=== PATIENT | female | born 1955 | race African-American/Black ===

== ENCOUNTER 2016-07-30 11:42 | Emergency (ER) ==
--- NOTE | 2016-07-30 11:47 | PROVIDER DOCUMENTATION ---
HPI-Neurological Disorder - General Chief Complaint: Stroke-Like Symptoms Stated Complaint: one sided weakness Time Seen by Provider: 07/30/16 11:45 Source: patient, EMS Allergies/Adverse Reactions: Patient Allergies Allergy/AdvReac Type Severity Reaction Status Date / Time No Known Allergies Allergy Verified 07/30/16 11:48 Home Medications: Amlodipine [Norvasc] 5 mg PO DAILY 11/11/13 Clonidine [Catapres] 0.3 mg PO BID 11/11/13 Potassium Chloride [Klor-Con 8] 8 meq PO DAILY 11/11/13 Ranitidine [Zantac] 150 mg PO BID 11/11/13 Hydrocodone/Acetaminophen [Lortab 10-500 Tablet] 1 tab PO TID PRN 03/25/15 Aspirin 325 mg PO DAILY 06/02/15 Atorvastatin Calcium [Lipitor] 80 mg PO DAILY 06/02/15 Ezetimibe [Zetia] 10 mg PO DAILY 06/02/15 Albuterol Sulfate Inhaler [Ventolin Hfa] 2 puff IH Q4H PRN PRN 12/24/15 Alprazolam [Xanax] 1 mg PO DAILY 12/24/15 Budesonide/Formoterol Fumarate [Symbicort 160-4.5 Mcg Inhaler] 10.2 gm IH DAILY 12/24/15 Ipratropium/Albuterol INH [Combivent Respimat Inhaler] 2 puff IH Q4H PRN PRN Montelukast [Singulair] 10 mg PO DAILY 12/24/15 Metformin [Glucophage] 500 mg PO BID CC 03/19/16 - History of Present Illness-Neuro Nature of Presenting Problem: Reports to er by ems with cc of AMS. However upon ems arrival pt started complianing of right sided neck pain and unalbe to turn head to right. Family reports that pt started having confusion and leaning back and forth after cooking this morning. Pt has left sided facial deficits from previous stroke. EMS reports pt in nonverbal but can answer yes and no questions Severity: reports: moderate Onset/Duration: reports: 1/2 hour ago Timing: reports: still present Character of Altered Mental Status: reports: confused Any recent trauma/injury?: reports: none Similar Symptoms Previously?: No Recently seen or treated by another doctor?: No Review of Systems - Adult - REVIEW OF SYSTEMS - ADULT ROS:: limited per condition Constitutional: reports: no symptoms reported Eyes: denies: dry eyes, decreased vision, blurred vision, redness Ears, Nose, Mouth & Throat: reports: no symptoms reported Cardiovascular: denies: chest pain, irregular heart rate, orthopnea, syncope Respiratory: reports: no symptoms reported Gastrointestinal: reports: no symptoms reported Genitourinary: reports: no symptoms reported Musculoskeletal: reports: no symptoms reported Integumentary: reports: no symptoms reported Neurological: reports: see HPI. denies: numbness, paresthesia, seizure Psychiatric: reports: no symptoms reported Endocrine: reports: no symptoms reported Hematologic/Lymphatic: reports: no symptoms reported Allergic/Immunologic: reports: no symptoms reported All Other Systems: Reviewed and Negative Past History - Adult - PAST MEDICAL HISTORY-ADULT Review of Records: reports: Nursing Assessment Review Major Childhood Illnesses: reports: denies history Cardiovascular: reports: CHF, HTN, hyperlipidemia Respiratory: reports: asthma, COPD Gastrointestinal: reports: denies history Obstetrical/Gynecological: reports: denies history Genitourinary: reports: denies history Musculoskeletal: reports: denies history Neurological: reports: CVA Psychiatric: reports: anxiety Endocrine/Immune: reports: denies history Other Conditions: reports: denies history - PRIOR SURGERIES/PROCEDURES Surgical/Procedure History: reports: none, orthopedic (extremity) (2 knee replacement) - PRIOR HOSPITALIZATIONS Prior Hospitalizations: reports: none - IMMUNIZATION STATUS Childhood Immunizations: See Nurse Assessment Flu Vaccine: See Nurse Assessment - FAMILY HISTORY Family History: reviewed, not pertinent - SOCIAL HISTORY Smoking: denies Substance Use: alcohol Physical Exam- Neurological - Physical Exam-Neuro Initial Vital Signs Reviewed: Yes General Appearance: alert, mild distress. negative: appears well Eye Exam: bilateral eye: normal inspection, PERRL, EOMI HENMT: normocephalic/atraumatic, TMs normal, pharynx normal, other (left side facial drooping from previous cva per pt) Head Injury: no evidence of injury Neck: other (pt head tilted to left able to move to right just painful range of motion). negative: lymphadenopathy Respiratory: chest non-tender, lungs clear, normal breath sounds, no pleuratic chest pain, no respiratory distress, no accessory muscle use Cardiovascular: normal peripheral pulses, regular rate, rhythm, no edema, no gallop, no JVD, no murmur Abdominal Exam: normal bowel sounds, non tender, soft, no organomegaly, no pulsatile mass Extremity: normal range of motion, non-tender print room worker Exam: normal hearing, normal speech (per ems), PERRL Motor/Sensory: no motor deficit, no sensory deficit Integumentary: normal color, normal turgor, warm/dry - Glascow Coma Scale Best Eye Response: (4) open spontaneously Best Verbal Response: (5) oriented Best Motor Response: (6) obeys commands Total Glascow Score: 15 Progress - PLAN OF CARE/RESULTS Progress/Plan/Lab Results: Orders Category Date Time Status Cardiac Monitoring DIRECTED Care 07/30/16 11:45 Active Finger Stick Blood Sugar (ED) DIRECTED Care 07/30/16 11:45 Active Oxygen Therapy- ED Nursing DIRECTED Care 07/30/16 11:45 Active Saline Loc NOW Care 07/30/16 11:45 Active ABG [RESP] Routine Lab 07/30/16 11:45 Ordered ALCOHOL BLOOD Stat Lab 07/30/16 11:45 Uncollected CBC WITH ELECTRONIC DIFF [HEME] Stat Lab 07/30/16 11:45 Uncollected COMPREHENSIVE METABOLIC PANEL [CHEM] Stat Lab 07/30/16 11:45 Uncollected LACTATE, PLASMA [CHEM] Stat Lab 07/30/16 11:45 Uncollected PROTIME WITH INR [COAG] Stat Lab 07/30/16 11:45 Uncollected PTT [COAG] Stat Lab 07/30/16 11:45 Uncollected TROPONIN T Stat Lab 07/30/16 11:45 Uncollected URINE DRUG SCREEN Stat Lab 07/30/16 11:45 Uncollected Pulse Oximetry Stat Oth 07/30/16 11:45 Active EKG [EKG] Stat Ther 07/30/16 11:45 Ordered Vital Signs - 24 hr 07/30/16 11:43 Pulse Rate 91 H Respiratory 23 Rate Blood Pressure 154/122 O2 Sat by Pulse 97 Oximetry Laboratory Tests 07/30/16 07/30/16 07/30/16 12:20 12:20 12:20 WBC 10.94 H RBC 4.74 Hgb 12.7 Hct 41.0 MCV 86.5 MCH 26.8 L MCHC 31.0 L RDW Std Deviation 18.0 H Plt Count 347 MPV 9.7 Immature Gran % (Auto) 0.5 Neut % (Auto) 72.8 Lymph % (Auto) 17.6 L Desha % (Auto) 7.5 Eos % (Auto) 1.1 Baso % (Auto) 0.5 Immature Gran # (Auto) 0.05 H Neut # (Auto) 7.97 H Lymph # (Auto) 1.93 Desha # (Auto) 0.82 H Eos # (Auto) 0.12 Baso # (Auto) 0.05 PT INR APTT (Factor Assay) Specimen Type Sample Site pH pCO2 pO2 HCO3 Base Excess Oxyhemoglobin ABG O2 Sat (Calculated) ABG O2 Saturation ABG Carboxyhemoglobin ABG Methemoglobin Ant Test A-a O2 Difference Total Hemoglobin Lactate Blood Gas Modality FiO2 % Sodium 140 Potassium 4.4 Chloride 102 Carbon Dioxide 25 Anion Gap 13 BUN 16 Creatinine 1.0 H Estimated GFR/1.73 m2 56 BUN/Creatinine Ratio 16 Glucose 105 H Calculated Osmolality 281 Calcium 9.5 Total Bilirubin 0.40 AST 22 ALT 14 Alkaline Phosphatase 112 H Troponin T Total Protein 7.4 Albumin 4.0 Globulin 3.0 Albumin/Globulin Ratio 1.0 Plasma/Serum Ethyl Alc 07/30/16 07/30/16 07/30/16 12:20 12:20 12:30 WBC RBC Hgb Hct MCV MCH MCHC RDW Std Deviation Plt Count MPV Immature Gran % (Auto) Neut % (Auto) Lymph % (Auto) Desha % (Auto) Eos % (Auto) Baso % (Auto) Immature Gran # (Auto) Neut # (Auto) Lymph # (Auto) Desha # (Auto) Eos # (Auto) Baso # (Auto) PT 12.8 INR 0.93 APTT (Factor Assay) 32.0 Specimen Type ARTERIAL Sample Site L RADIAL pH 7.43 pCO2 42 pO2 72 HCO3 27.3 H Base Excess 3.2 H Oxyhemoglobin 93.2 L ABG O2 Sat (Calculated) 16.9 ABG O2 Saturation 96.7 ABG Carboxyhemoglobin 2.30 ABG Methemoglobin 1.3 Ant Test YES A-a O2 Difference 25.0 Total Hemoglobin 12.9 Lactate 1.20 Blood Gas Modality ROOM AIR FiO2 % 21.0 Sodium Potassium Chloride Carbon Dioxide Anion Gap BUN Creatinine Estimated GFR/1.73 m2 BUN/Creatinine Ratio Glucose Calculated Osmolality Calcium Total Bilirubin AST ALT Alkaline Phosphatase Troponin T < 0.010 Total Protein Albumin Globulin Albumin/Globulin Ratio Plasma/Serum Ethyl Alc Laboratory Tests 07/30/16 07/30/16 07/30/16 12:20 12:20 12:20 WBC 10.94 H RBC 4.74 Hgb 12.7 Hct 41.0 MCV 86.5 MCH 26.8 L MCHC 31.0 L RDW Std Deviation 18.0 H Plt Count 347 MPV 9.7 Immature Gran % (Auto) 0.5 Neut % (Auto) 72.8 Lymph % (Auto) 17.6 L Desha % (Auto) 7.5 Eos % (Auto) 1.1 Baso % (Auto) 0.5 Immature Gran # (Auto) 0.05 H Neut # (Auto) 7.97 H Lymph # (Auto) 1.93 Desha # (Auto) 0.82 H Eos # (Auto) 0.12 Baso # (Auto) 0.05 PT INR APTT (Factor Assay) Specimen Type Sample Site pH pCO2 pO2 HCO3 Base Excess Oxyhemoglobin ABG O2 Sat (Calculated) ABG O2 Saturation ABG Carboxyhemoglobin ABG Methemoglobin Ant Test A-a O2 Difference Total Hemoglobin Lactate Blood Gas Modality FiO2 % Sodium 140 Potassium 4.4 Chloride 102 Carbon Dioxide 25 Anion Gap 13 BUN 16 Creatinine 1.0 H Estimated GFR/1.73 m2 56 BUN/Creatinine Ratio 16 Glucose 105 H Calculated Osmolality 281 Calcium 9.5 Total Bilirubin 0.40 AST 22 ALT 14 Alkaline Phosphatase 112 H Troponin T Total Protein 7.4 Albumin 4.0 Globulin 3.0 Albumin/Globulin Ratio 1.0 Plasma Lactate Plasma/Serum Ethyl Alc 07/30/16 07/30/16 07/30/16 12:20 12:20 12:30 WBC RBC Hgb Hct MCV MCH MCHC RDW Std Deviation Plt Count MPV Immature Gran % (Auto) Neut % (Auto) Lymph % (Auto) Desha % (Auto) Eos % (Auto) Baso % (Auto) Immature Gran # (Auto) Neut # (Auto) Lymph # (Auto) Desha # (Auto) Eos # (Auto) Baso # (Auto) PT 12.8 INR 0.93 APTT (Factor Assay) 32.0 Specimen Type ARTERIAL Sample Site L RADIAL pH 7.43 pCO2 42 pO2 72 HCO3 27.3 H Base Excess 3.2 H Oxyhemoglobin 93.2 L ABG O2 Sat (Calculated) 16.9 ABG O2 Saturation 96.7 ABG Carboxyhemoglobin 2.30 ABG Methemoglobin 1.3 Ant Test YES A-a O2 Difference 25.0 Total Hemoglobin 12.9 Lactate 1.20 Blood Gas Modality ROOM AIR FiO2 % 21.0 Sodium Potassium Chloride Carbon Dioxide Anion Gap BUN Creatinine Estimated GFR/1.73 m2 BUN/Creatinine Ratio Glucose Calculated Osmolality Calcium Total Bilirubin AST ALT Alkaline Phosphatase Troponin T < 0.010 Total Protein Albumin Globulin Albumin/Globulin Ratio Plasma Lactate Plasma/Serum Ethyl Alc 07/30/16 12:45 WBC RBC Hgb Hct MCV MCH MCHC RDW Std Deviation Plt Count MPV Immature Gran % (Auto) Neut % (Auto) Lymph % (Auto) Desha % (Auto) Eos % (Auto) Baso % (Auto) Immature Gran # (Auto) Neut # (Auto) Lymph # (Auto) Desha # (Auto) Eos # (Auto) Baso # (Auto) PT INR APTT (Factor Assay) Specimen Type Sample Site pH pCO2 pO2 HCO3 Base Excess Oxyhemoglobin ABG O2 Sat (Calculated) ABG O2 Saturation ABG Carboxyhemoglobin ABG Methemoglobin Ant Test A-a O2 Difference Total Hemoglobin Lactate Blood Gas Modality FiO2 % Sodium Potassium Chloride Carbon Dioxide Anion Gap BUN Creatinine Estimated GFR/1.73 m2 BUN/Creatinine Ratio Glucose Calculated Osmolality Calcium Total Bilirubin AST ALT Alkaline Phosphatase Troponin T Total Protein Albumin Globulin Albumin/Globulin Ratio Plasma Lactate 1.4 Plasma/Serum Ethyl Alc Laboratory Tests 07/30/16 07/30/16 07/30/16 12:20 12:20 12:20 WBC 10.94 H RBC 4.74 Hgb 12.7 Hct 41.0 MCV 86.5 MCH 26.8 L MCHC 31.0 L RDW Std Deviation 18.0 H Plt Count 347 MPV 9.7 Immature Gran % (Auto) 0.5 Neut % (Auto) 72.8 Lymph % (Auto) 17.6 L Desha % (Auto) 7.5 Eos % (Auto) 1.1 Baso % (Auto) 0.5 Immature Gran # (Auto) 0.05 H Neut # (Auto) 7.97 H Lymph # (Auto) 1.93 Desha # (Auto) 0.82 H Eos # (Auto) 0.12 Baso # (Auto) 0.05 PT INR APTT (Factor Assay) Specimen Type Sample Site pH pCO2 pO2 HCO3 Base Excess Oxyhemoglobin ABG O2 Sat (Calculated) ABG O2 Saturation ABG Carboxyhemoglobin ABG Methemoglobin Ant Test A-a O2 Difference Total Hemoglobin Lactate Blood Gas Modality FiO2 % Sodium 140 Potassium 4.4 Chloride 102 Carbon Dioxide 25 Anion Gap 13 BUN 16 Creatinine 1.0 H Estimated GFR/1.73 m2 56 BUN/Creatinine Ratio 16 Glucose 105 H Calculated Osmolality 281 Calcium 9.5 Total Bilirubin 0.40 AST 22 ALT 14 Alkaline Phosphatase 112 H Troponin T Total Protein 7.4 Albumin 4.0 Globulin 3.0 Albumin/Globulin Ratio 1.0 Plasma Lactate Urine Opiates Screen Ur Oxycodone Screen Urine Methadone Screen Ur Barbituates Screen Ur Tricyclics Screen Ur Phencyclidine Scrn Ur Amphetamines Screen U Methamphetamines Scrn Urine MDMA Screen U Benzodiazepines Scrn Urine Cocaine Screen U Cannabinoids Screen Plasma/Serum Ethyl Alc 07/30/16 07/30/16 07/30/16 12:20 12:20 12:30 WBC RBC Hgb Hct MCV MCH MCHC RDW Std Deviation Plt Count MPV Immature Gran % (Auto) Neut % (Auto) Lymph % (Auto) Desha % (Auto) Eos % (Auto) Baso % (Auto) Immature Gran # (Auto) Neut # (Auto) Lymph # (Auto) Desha # (Auto) Eos # (Auto) Baso # (Auto) PT 12.8 INR 0.93 APTT (Factor Assay) 32.0 Specimen Type ARTERIAL Sample Site L RADIAL pH 7.43 pCO2 42 pO2 72 HCO3 27.3 H Base Excess 3.2 H Oxyhemoglobin 93.2 L ABG O2 Sat (Calculated) 16.9 ABG O2 Saturation 96.7 ABG Carboxyhemoglobin 2.30 ABG Methemoglobin 1.3 Ant Test YES A-a O2 Difference 25.0 Total Hemoglobin 12.9 Lactate 1.20 Blood Gas Modality ROOM AIR FiO2 % 21.0 Sodium Potassium Chloride Carbon Dioxide Anion Gap BUN Creatinine Estimated GFR/1.73 m2 BUN/Creatinine Ratio Glucose Calculated Osmolality Calcium Total Bilirubin AST ALT Alkaline Phosphatase Troponin T < 0.010 Total Protein Albumin Globulin Albumin/Globulin Ratio Plasma Lactate Urine Opiates Screen Ur Oxycodone Screen Urine Methadone Screen Ur Barbituates Screen Ur Tricyclics Screen Ur Phencyclidine Scrn Ur Amphetamines Screen U Methamphetamines Scrn Urine MDMA Screen U Benzodiazepines Scrn Urine Cocaine Screen U Cannabinoids Screen Plasma/Serum Ethyl Alc 01/04/17 01/04/17 12:45 13:50 WBC RBC Hgb Hct MCV MCH MCHC RDW Std Deviation Plt Count MPV Immature Gran % (Auto) Neut % (Auto) Lymph % (Auto) Desha % (Auto) Eos % (Auto) Baso % (Auto) Immature Gran # (Auto) Neut # (Auto) Lymph # (Auto) Desha # (Auto) Eos # (Auto) Baso # (Auto) PT INR APTT (Factor Assay) Specimen Type Sample Site pH pCO2 pO2 HCO3 Base Excess Oxyhemoglobin ABG O2 Sat (Calculated) ABG O2 Saturation ABG Carboxyhemoglobin ABG Methemoglobin Ant Test A-a O2 Difference Total Hemoglobin Lactate Blood Gas Modality FiO2 % Sodium Potassium Chloride Carbon Dioxide Anion Gap BUN Creatinine Estimated GFR/1.73 m2 BUN/Creatinine Ratio Glucose Calculated Osmolality Calcium Total Bilirubin AST ALT Alkaline Phosphatase Troponin T Total Protein Albumin Globulin Albumin/Globulin Ratio Plasma Lactate 1.4 Urine Opiates Screen NONE DETECTED Ur Oxycodone Screen NONE DETECTED Urine Methadone Screen NONE DETECTED Ur Barbituates Screen NONE DETECTED Ur Tricyclics Screen NONE DETECTED Ur Phencyclidine Scrn NONE DETECTED Ur Amphetamines Screen NONE DETECTED U Methamphetamines Scrn NONE DETECTED Urine MDMA Screen NONE DETECTED U Benzodiazepines Scrn NONE DETECTED Urine Cocaine Screen NONE DETECTED U Cannabinoids Screen NONE DETECTED Plasma/Serum Ethyl Alc BP on discharge 147/115 - REASSESSMENT Reassessment #1 Time Reassessed: 13:01 (Pt is in no distress at this time full able to move neck back and forth.) Reassessment #2 Time Reassessed: 13:32 (MD reassesed family at bedside reports pt woke up this am at 0900 was sitting in chair was lightheaded reports immediately got up went to kitchen started making breakfast and then started losing balanc and then reports vision went to black again. Reports checked Bs 174. Hadnt took BP in one day Started having stiff face family called EMS. Reports last episode 5 months ago. Pt is in no distress and is able to move neck fully and reports no pain.) - EKG 1 Time of EKG reading by physician:: 11:42 EKG Read and Signed by:: Jose Chávez Jr EKG Interpretation (*Must complete 3 of following elements*): Abnormal Rate: 93 Rhythm: nsr Hamill: normal QRS: normal ST Wave: non-specific ST changes - CT/MRI 1 CT Study: Head Impression: Normal (no acute disease; unchanged; ) Departure - Departure Time of Disposition Order: 13:34 DIAGNOSIS: Muscle spasms of neck, Medical non-compliance, Uncontrolled hypertension Disposition: HOME 01 Certified Medical Emergency: Emergent Condition: Stable Additional Instructions: Take medications as instructed ED Follow Up Instructions: You have been treated by a care provider in the Emergency Department. These instructions are being provided to you so you can have an understanding of how to care for yourself upon discharge. Upon discharge from the Emergency Department, you are responsible for making arrangements for follow-up care by a physician of your choice. Take all prescribed medications as directed. Return to the Emergency Department immediately for any new or worsening symptoms. You may call the Physician Referral phone number at [phone] to obtain a list of Physicians who are taking new patients. Referrals: None,PCP [Primary Care Provider] - Attestation - Scribe Verification/Attestation Scribe:: Iliana Hennessy Acting as Scribe for:: Jose Chávez Jr Scribe documention review:: This chart was documented by a scribe and accurately reflects the service the provider performed and the decisions made by the provider.
[2016-07-30 11:48] VITALS: BP 154/122
--- NOTE | 2016-07-30 11:56 | EKG Report ---
Test Performed on : 07/30/2016 11:42:36 AM Test Reason : AMS Blood Pressure : / mmHG Vent. Rate : 093 BPM Atrial Rate : 093 BPM P-R Int : 192 ms QRS Dur : 096 ms QT Int : 378 ms P-R-T Axes : 082 040 083 degrees QTc Int : 469 ms Normal sinus rhythm. Nonspecific T wave abnormality Abnormal ECG When compared with ECG of 20-MAR-2016 03:49, Nonspecific T wave abnormality, improved in Lateral leads Unconfirmed Result
[2016-07-30 12:36] LABS: MANUAL DIFF NEEDED? NO
[2016-07-30 12:38] LABS: BASO% 0.5 % (0.0-0.8); EOS# 0.12 X1000 (0.0-0.7); EOS% 1.1 % (0.0-10.0); HEMOGLOBIN 12.7 g/dL (12.0-16.0); IMM GRAN# 0.05 X1000 (0.0-0.04); IMM GRAN% 0.5 % (0.0-0.5); LYMPH# 1.93 X1000 (1.2-3.4); LYMPH% 17.6 % (20.5-51.1); MCH 26.8 PG (27-31); MCV 86.5 FL (81-99); MONO# 0.82 X1000 (0.11-0.59); MONO% 7.5 % (1.7-9.3); MPV 9.7 FL (7.4-10.4); NEUT% 72.8 % (42.2-75.2); PLT 347 X1000 (130-400); RBC 4.74 XMIL (4.2-5.4)
--- NOTE | 2016-07-30 12:38 | Diag Imaging Result Document ---
PROCEDURE NAME: HEAD W/O CONTRAST - 07/30/[address]: COMPARISON: 03/19/2016. FINDINGS: There are stable, large, old bilateral cerebral infarctions. No intracranial mass or hemorrhage. The skull is intact. The sinuses, mastoids, and middle ears are clear. IMPRESSION: No change from prior.
[2016-07-30 12:42] LABS: BE 3.2 mmoll (-3.0-3.0); BLOOD TYPE ARTERIAL; DRAW SITE L RADIAL; METHB 1.3 % (0.0-1.5); O2(CT) 16.9 mL/dL (15.0-23.0); PCO2(98.6) 42 mmHg (35-45); PO2(98.6) 72 mmHg (60-100); SAMPLE BLOOD; SAO2 96.7 % (95.0-100.0); THB 12.9 g/dL (11.5-17.4); pH(98.6) 7.43 (7.35-7.45)
[2016-07-30 12:45] LABS: INR 0.93 (0.86-1.15); PROTIME 12.8 Seconds (12.1-15.5)
[2016-07-30 12:51] LABS: CALCIUM 9.5 mg/dL (8.8-10.2); POTASSIUM 4.4 mmol/L (3.5-5.1); TOTAL BILIRUBIN 0.4 mg/dL (0.20-1.00); TOTAL PROTEIN 7.4 g/dL (6.3-8.3)
[2016-07-30 12:54] LABS: ALLEN TEST YES; MODALITY ROOM AIR
[2016-07-30 14:18] LABS: UR AMPHETAMINES QUAL NONE DETECTED (NONE DETECT); UR BARBITUATES QUAL NONE DETECTED (NONE DETECT); UR BENZODIAZEPIN QUAL NONE DETECTED (NONE DETECT); UR COCAINE QUAL NONE DETECTED (NONE DETECT); UR MDMA QUAL NONE DETECTED (NONE DETECT); UR METHADONE QUAL NONE DETECTED (NONE DETECT); UR METHAMPHETAMINE QUAL NONE DETECTED (NONE DETECT); UR OPIATES QUAL NONE DETECTED (NONE DETECT); UR OXYCODONE QUAL NONE DETECTED (NONE DETECT); UR PCP QUAL NONE DETECTED (NONE DETECT); UR TCA QUAL NONE DETECTED (NONE DETECT)
[2016-07-30 14:19] LABS: UR CANNABINOIDS QUAL NONE DETECTED (NONE DETECT)
[2016-07-30] MEDS ORDERED: LASIX IV ONE (14:33)
[2016-07-30] MEDS ORDERED: CATAPRES PO ONE (14:33)
[2016-07-30] MEDS ORDERED: PRINIVIL PO ONE (14:33)
[2016-07-30] MEDS ORDERED: CATAPRES ONE ×2 (14:50→14:51)
== END 2016-07-30 15:30 | disposition home or self-care (01) ==
LOC: P.ED 11:42
DX: M62.838 Other muscle spasm (principal); I10 Essential (primary) hypertension; R94.31 Abnormal electrocardiogram [ECG] [EKG]; R41.82 Altered mental status, unspecified; M54.2 Cervicalgia; R41.0 Disorientation, unspecified; M62.81 Muscle weakness (generalized); R42 Dizziness and giddiness; H53.8 Other visual disturbances; E78.5 Hyperlipidemia, unspecified; J45.909 Unspecified asthma, uncomplicated; J44.9 Chronic obstructive pulmonary disease, unspecified; I69.392 Facial weakness following cerebral infarction; F41.9 Anxiety disorder, unspecified; Z79.82 Long term (current) use of aspirin; Z79.899 Other long term (current) drug therapy; Z91.19 Patient's noncompliance with other medical treatment and regimen; Z96.659 Presence of unspecified artificial knee joint
CPT/HCPCS: 70450; 80053; 82805; 83605; 84484; 85025; 85610; 85730; 93005; 96374; G0477; G0480; J1940

== ENCOUNTER 2016-11-01 19:01 | Inpatient (IN) ==
[2016-11-01 19:31] LABS: MANUAL DIFF NEEDED? NO
[2016-11-01 19:40] LABS: BASO% 0.4 % (0.0-0.8); EOS# 0.18 X1000 (0.0-0.7); EOS% 1.6 % (0.0-10.0); HEMATOCRIT 40.8 % (37.0-47.0); HEMOGLOBIN 12.6 g/dL (12.0-16.0); IMM GRAN# 0.04 X1000 (0.0-0.04); IMM GRAN% 0.4 % (0.0-0.5); LYMPH# 3.17 X1000 (1.2-3.4); MCH 26.1 PG (27-31); MCHC 30.9 g/dL (33-37); MCV 84.5 FL (81-99); MONO% 8.8 % (1.7-9.3); MPV 10.1 FL (7.4-10.4); NEUT% 60.8 % (42.2-75.2); PLT 335 X1000 (130-400); RBC 4.83 XMIL (4.2-5.4)
[2016-11-01 19:53] LABS: INR 0.95 (0.86-1.15)
[2016-11-01 19:54] LABS: PTT PL 30.9 Seconds (22.6-43.9)
[2016-11-01 20:20] LABS: AGAP 17; ALBUMIN 3.8 g/dL (3.5-5.0); ALKALINE PHOSPHATASE 97 U/L (32-104); BUN 41 mg/dL (8-22); CALCIUM 9.4 mg/dL (8.8-10.2); CHLORIDE 101 mmol/L (98-107); CK PROFILE 122 U/L (24-173); COSMO 287; GOT 14 U/L (10-30); GPT 10 U/L (10-36); MAGNESIUM 2.3 mg/dL (1.5-2.7); POTASSIUM 2.9 mmol/L (3.5-5.1); SODIUM 138 mmol/L (136-145); TCO2 20 mmol/L (25-35); TOTAL BILIRUBIN < 0.15 mg/dL (0.20-1.00); TOTAL PROTEIN 7.8 g/dL (6.3-8.3)
--- NOTE | 2016-11-01 20:38 | Diag Imaging Result Document ---
PROCEDURE NAME: HEAD W/O CONTRAST - 11/01/2016 CT OF THE HEAD: A CT dose reduction protocol was used. COMPARISON: 07/30/2016. FINDINGS: There are stable old bilateral cerebral infarctions. No intracranial mass or hemorrhage. The skull is intact. The sinuses are clear. IMPRESSION: No acute disease or change from prior. MTDD
--- NOTE | 2016-11-01 21:28 | EKG Report ---
Test Performed on : 11/01/2016 7:51:56 PM Test Reason : CHEST PAIN Blood Pressure : / mmHG Vent. Rate : 072 BPM Atrial Rate : 072 BPM P-R Int : 224 ms QRS Dur : 104 ms QT Int : 460 ms P-R-T Axes : 071 012 081 degrees QTc Int : 503 ms Sinus rhythm. with 1st degree AV block. with occasional premature ventricular complexes. Nonspecific T wave abnormality Abnormal ECG When compared with ECG of 30-JUL-2016 11:42, premature ventricular complexes. are now present OH interval has increased Unconfirmed Result
[2016-11-01] MEDS ORDERED: POTASSIUM CHLORIDE 40 MEQ/SWI 40 MEQ/100 ML IVPB IV ONE (22:18)
--- NOTE | 2016-11-01 22:31 | Diag Imaging Result Document ---
PROCEDURE NAME: CT THORAX W/O CONTRAST - 11/01/2016 CT CHEST 11/01/2016: A CT dose reduction protocol was used. COMPARISON: Previous chest x-rays. FINDINGS: There is no adenopathy. Heart and great vessels are normal. 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 No suspicious abnormalities of the upper abdomen. The lungs are clear of infiltrate. Significant degenerative changes throughout the thoracic spine. No acute bony lesions. IMPRESSION: No acute disease. [facility]
[2016-11-01] MEDS: MORPHINE IV PRN (22:33)
--- NOTE | 2016-11-02 01:20 | Diag Imaging Result Document ---
PROCEDURE NAME: CHEST-2 VIEWS - 11/01/2016 CHEST X-RAY 2 VIEWS: COMPARISON: 03/19/2016. FINDINGS: The lungs are normally expanded and clear. Heart size and mediastinal contours are normal. No pneumothorax or pleural effusion. IMPRESSION: Negative exam.
[2016-11-02] MEDS: MORPHINE IV PRN ×3 (02:54→23:55)
[2016-11-02 10:08] LABS: ALBUMIN 3.4 g/dL (3.5-5.0); ALKALINE PHOSPHATASE 84 U/L (32-104); DIRECT BILIRUBIN < 0.20 mg/dL (0.00-0.20); GOT 14 U/L (10-30); GPT 8 U/L (10-36); MAGNESIUM 2.2 mg/dL (1.5-2.7); TOTAL PROTEIN 6.7 g/dL (6.3-8.3)
[2016-11-02 13:04] LABS: HEMATOCRIT 39.1 % (37.0-47.0); MCH 26.2 PG (27-31); MCHC 30.7 g/dL (33-37); MCV 85.4 FL (81-99); MPV 9.9 FL (7.4-10.4); RBC 4.58 XMIL (4.2-5.4)
--- NOTE | 2016-11-02 16:53 | HISTORY AND PHYSICAL ---
CHIEF COMPLAINT: Stroke, facial drooping, and left-sided weakness. HISTORY OF PRESENT ILLNESS: This is a 60-year-old female with a history of prior cerebrovascular accidents, who presented to the emergency room with family members, who stated that the patient had complained of a headache for 2 days, but upon checking on the sister prior to coming the emergency room she was noted to have a new facial droop with increased left-sided weakness. The patient is nonverbal, so the history is taken from family members and chart. There is no family present at this time, so history is taken from the chart and the nursing staff. Evidently, the patient has "been leaning when she walks" for quite some time now. Upon arrival to the emergency room, she was awake. Of course, speech was garbled. She did not consistently follow commands. CT of the head revealed no acute disease or change from prior. Her status remained stable in the emergency room. PAST MEDICAL HISTORY: Cerebrovascular accident x5, chronic obstructive pulmonary disease, diabetes mellitus, hypertension, and seizures. PAST SURGICAL HISTORY: Hysterectomy, hernia repair, total knee, left shoulder surgery. SOCIAL HISTORY: She denies tobacco or illicit drug use. She has an occasional social glass of wine. ALLERGIES: No known drug allergies. HOME MEDICATIONS: A list will be obtained. REVIEW OF SYSTEMS: Unable to obtain from the patient. PHYSICAL EXAMINATION: GENERAL: This is a 60-year-old female who is lying in the bed in no distress. VITAL SIGNS: Blood pressure is 127/65, heart rate of 82, respirations are 18, temperature is 98.1 degrees oral with oxygen saturations of 98-100% on 2 L nasal cannula. HEENT: Head is normocephalic, atraumatic. Pupils equal, round, react to light. Extraocular movements intact. Sclerae anicteric. Mucous membranes are moist. NECK: Supple. Trachea midline. CARDIOVASCULAR: Regular rate and rhythm. S1 and S2 appreciated. PULMONARY: Breath sounds are clear with no increased work of breathing noted. GASTROINTESTINAL: Soft, nontender, nondistended with bowel sounds in all 4 quadrants. NEUROLOGIC: She is awake. She appears alert. She is nonverbal. She does nod her head yes or no to questions, although we cannot be sure that she does understand. When asked to check arm strength and director medical writing she will raise her arm up in the air but does not director medical writing or push or pull. EXTREMITIES: No clubbing, cyanosis, or edema. Pulses are palpable x4. Calves are nontender. DIAGNOSTICS: WBC is 11.34 with hemoglobin 12.6, hematocrit 40.8, platelets of 335,000. D-dimer is 1.64. Sodium is 138, potassium 2.9, BUN 41, creatinine 1.7, with a glucose of 119. Troponin is negative on multiple occasions. CT of the head revealed no acute processes. ASSESSMENT AND PLAN: 1. Transient ischemic attack versus cerebrovascular accident. 2. Left side weakness. 3. Hypokalemia. 4. Diabetes mellitus. 5. Chronic obstructive pulmonary disease. 6. Hypertension. 7. Chronic kidney disease. She is admitted to the hospital. We will continue telemetry with neuro checks q.4 hours. We will obtain a carotid ultrasound. MRI in the morning. We will continue to trend labs and replete electrolytes as appropriate. We will continue to trend troponin's. Pattern blood glucose with sliding scale insulin. We will identify her home medications and continue as appropriate. Further treatments pending hospital course. Dictated by ESAU Brown for Stepan Shea MD cc: ESAU Brown MD
[2016-11-02] MEDS ORDERED: LOVENOX SUBQ ONE (23:01)
[2016-11-02] MEDS: MONISTAT 3 VAG SCH (23:56)
[2016-11-03] MEDS: LIPITOR PO SCH ×2 (00:04→20:25)
[2016-11-03 07:03] LABS: HEMATOCRIT 41.5 % (37.0-47.0); HEMOGLOBIN 12.6 g/dL (12.0-16.0); MCH 26.2 PG (27-31); MCHC 30.4 g/dL (33-37); MCV 86.3 FL (81-99); RBC 4.81 XMIL (4.2-5.4)
--- NOTE | 2016-11-03 07:09 | Extremity Venous Study ---
PROCEDURE NAME: Carotid Ultrasound - 11/02/2016 BILATERAL CAROTID ARTERY DOPPLER ULTRASOUND: COMPARISON: None. FINDINGS: The carotid artery systems are patent bilaterally. No evidence of stenosis. No elevated velocities. Maximum velocity on the right is 59 cm/sec and on the left is 69 cm/sec. The vertebral arteries are patent with forward flow. IMPRESSION: No significant stenosis. Estimated stenosis is 0%.
[2016-11-03 07:39] LABS: ALBUMIN 3.6 g/dL (3.5-5.0); CALCIUM 9.6 mg/dL (8.8-10.2); MAGNESIUM 2.3 mg/dL (1.5-2.7); POTASSIUM 3.4 mmol/L (3.5-5.1); TOTAL BILIRUBIN 0.2 mg/dL (0.20-1.00); TOTAL PROTEIN 7.5 g/dL (6.3-8.3)
[2016-11-03] MEDS ORDERED: KLOR-CON PO SCH (09:00)
[2016-11-03] MEDS: ASPIRIN PO SCH (09:08)
[2016-11-03] MEDS: KLOR-CON PO SCH (09:08)
[2016-11-03] MEDS: ZETIA PO SCH (09:08)
[2016-11-03] MEDS: SINGULAIR PO SCH (09:08)
[2016-11-03] MEDS: PEPCID PO SCH ×2 (09:08→20:25)
[2016-11-03] MEDS: CATAPRES PO SCH ×2 (09:45→16:48)
[2016-11-03] MEDS: MONISTAT 3 VAG SCH (20:25)
[2016-11-03] MEDS: KLONOPIN PO SCH (23:16)
[2016-11-04] MEDS: CATAPRES PO SCH ×3 (00:04→17:26)
--- NOTE | 2016-11-04 01:00 | PROGRESS NOTE ---
DATE: 11/03/2016 SUBJECTIVE: The patient is nonverbal secondary to previous stroke. She appears to be acknowledging that her left upper extremity weakness is a little better. OBJECTIVE: vital signs: Temp 989, pulse 77, respiratory rate 18, BP 110/66. General: Patient is awake, alert. She appears in no respiratory distress. She shakes her head yes or no in response to questions appropriately. HEENT: Normocephalic. Neck: Supple. Cardiovascular: Regular rate. Chest: Relatively clear. Extremities: She is noted to have decreased, but a little bit stronger movement of her left upper extremity, compared to yesterday's exam. ASSESSMENT: 1. CVA. 2. Left-sided weakness, secondary to an acute change in her CVA symptoms. 3. Chronic history of stroke, leaving her with dysphagia and some left-sided weakness. 4. Hypokalemia. 5. Diabetes. 6. COPD. 7. Hypertension. 8. Leukocytosis, resolved. 9. Elevated D-dimer. 10. Acute on chronic renal failure, slowly improving. 11. Hypokalemia, resolved. PLAN: Patient's D-dimer was elevated. Her creatinine continues to improve. Hopefully, it will be good enough in the morning to do a CT of her chest to rule out a pulmonary embolus. If not, she will need to be transferred across town for a V/Q scan. We will get physical therapy involved. We will attempt to contact [employer]. cc: Stepan Shea MD
[2016-11-04 06:35] LABS: MANUAL DIFF NEEDED? NO
[2016-11-04 06:49] LABS: BASO% 0.5 % (0.0-0.8); EOS# 0.29 X1000 (0.0-0.7); EOS% 3.7 % (0.0-10.0); HEMATOCRIT 37.6 % (37.0-47.0); HEMOGLOBIN 11.1 g/dL (12.0-16.0); IMM GRAN# 0.02 X1000 (0.0-0.04); IMM GRAN% 0.3 % (0.0-0.5); LYMPH# 2.07 X1000 (1.2-3.4); LYMPH% 26.7 % (20.5-51.1); MCH 25.5 PG (27-31); MCHC 29.5 g/dL (33-37); MCV 86.4 FL (81-99); MONO# 0.94 X1000 (0.11-0.59); MONO% 12.1 % (1.7-9.3); MPV 9.9 FL (7.4-10.4); NEUT% 56.7 % (42.2-75.2); PLT 306 X1000 (130-400); RBC 4.35 XMIL (4.2-5.4)
[2016-11-04 07:38] LABS: ALBUMIN 3.1 g/dL (3.5-5.0); CALCIUM 8.9 mg/dL (8.8-10.2); MAGNESIUM 2.3 mg/dL (1.5-2.7); POTASSIUM 3.5 mmol/L (3.5-5.1); TOTAL BILIRUBIN 0.3 mg/dL (0.20-1.00); TOTAL PROTEIN 6.3 g/dL (6.3-8.3)
[2016-11-04] MEDS: ASPIRIN PO SCH (09:55)
[2016-11-04] MEDS: SINGULAIR PO SCH (09:55)
[2016-11-04] MEDS: KLOR-CON PO SCH (09:55)
[2016-11-04] MEDS: PEPCID PO SCH (09:55)
[2016-11-04] MEDS: KLONOPIN PO SCH (09:56)
[2016-11-04] MEDS: ZETIA PO SCH (09:56)
--- NOTE | 2016-11-04 14:37 | Extremity Venous Study ---
PROCEDURE NAME: Venous U/S Bilateral Legs - 11/03/2016 BILATERAL LOWER EXTREMITY VENOUS FLOW EVALUATION: INDICATION: Calf pain. FINDINGS: The patient is morbidly obese. The deep veins of the lower extremities demonstrate appropriate compressibility and augmentation. No intraluminal thrombus is visualized. There is no evidence for DVT. No superficial thrombosis is appreciated. IMPRESSION: No evidence for deep venous thrombosis of the bilateral lower extremities.
--- NOTE | 2016-11-04 14:54 | Diag Imaging Result Document ---
PROCEDURE NAME: LUNG SCAN / VQ - 11/04/2016 PULMONARY VENTILATION PERFUSION SCAN: COMPARISON: Chest x-ray from earlier 11/04/2016. FINDINGS: 38 millicurie of DTPA was used for inhalation. 5.8 mCi of MAA was used for injection. There is a moderate perfusion defect at the left upper lobe apical posterior segment. No other perfusion defects visible. IMPRESSION: Possible pulmonary perfusion defect at the left upper lobe. This is of intermediate probability for pulmonary embolism. [facility]
[2016-11-04 15:14] VITALS: BP 90/49
--- NOTE | 2016-11-04 16:32 | DISCHARGE SUMMARY ---
ADMISSION DATE: 11/01/2016 DISCHARGE DATE: 11/04/2016 ADMISSION DIAGNOSES: 1. Transient ischemic attack versus cerebrovascular accident. 2. Left-sided weakness. 3. Hypokalemia. 4. Diabetes. 5. Chronic obstructive pulmonary disease. 6. Hypertension. 7. Chronic kidney disease. DISCHARGE DIAGNOSES: 1. Cerebrovascular accident. 2. Left-sided weakness secondary to an acute change in her cerebrovascular accident symptoms. 3. Chronic history of cerebrovascular accident leaving her with dysphagia and some left-sided weakness. 4. Hypokalemia, resolved. 5. Diabetes. 6. Chronic obstructive pulmonary disease. 7. Hypertension. SUMMARY OF FINDINGS: This is a 60-year-old female who presents to the emergency room stating she has had a headache for 2 days. She was noted to have a new facial droop with increased left-sided weakness. The patient is nonverbal, so the history was taken from family members and her chart. She had been "leaning" when she walks for some time. On arrival to the emergency room, she was awake. Speech was garbled. She could not consistently follow commands. CT of the head revealed no acute disease or change from prior. A chest CT showed no acute disease. Carotid Doppler showed no significant stenosis, estimated stenosis is 0%. Extremity venous study showed no evidence for DVT of her bilateral lower extremities. A V /Q scan this a.m. showed a possible pulmonary perfusion defect at the left upper lobe consistent for an intermediate probability for a PE. She has been followed by physical therapy and has tolerated well, and it is felt that she can now safely be discharged to rehab. DISCHARGE MEDICATIONS: Aspirin 325 mg p.o. daily, atorvastatin 80 mg p.o. daily , clonazepam 1 mg p.o. b.i.d., clonidine 0.3 mg p.o. t.i.d., ezetimibe 10 mg p.o. daily, montelukast sodium 10 mg p.o. daily, potassium 8 mEq p.o. daily, Zantac 150 mg p.o. b.i.d. FOLLOW UP: The patient will follow up with her primary care physician at discharge. It was discussed with the attending on the V/Q scan and the intermittent probability of a PE, and it is not felt that she does have one at this time because shows no signs and symptoms of respiratory distress. TIME SPENT: The time spent was 35 minutes. Dictated by ESAU Armendariz for Johnathon Aguilar MD cc: ESAU Armendariz MD Moses Awoniyi, MD MTDD
--- NOTE | 2016-11-05 07:34 | Diag Imaging Result Document ---
PROCEDURE NAME: CHEST-2 VIEWS - 11/04/2016 TWO VIEWS THE CHEST: FINDINGS: There is atelectasis in the lingula which was present on 11/01/2016. Otherwise, there has been no apparent change. IMPRESSION: Lingular atelectasis.
--- NOTE | 2016-11-06 18:29 | PROVIDER DOCUMENTATION ---
This chart was entered by Alecia Murray Scribe, acting as scribe for Bulmaro Escobedo DO. HPI-Neurological Disorder - General Stated Complaint: STROKE SX Time Seen by Provider: 11/01/16 19:06 Source: patient, family Allergies/Adverse Reactions: Patient Allergies Allergy/AdvReac Type Severity Reaction Status Date / Time No Known Allergies Allergy Verified 11/01/16 19:19 Home Medications: Home Medication List Medication Instructions Recorded Confirmed Last Taken Type Aspirin 325 mg PO DAILY 06/02/15 11/02/16 11/01/16 History Atorvastatin Calcium 1 tab PO DAILY 11/02/16 11/02/16 Unknown History Clonazepam 1 tab PO BID 11/02/16 11/02/16 Unknown History Clonidine HCl 1 tab PO TID 11/02/16 11/02/16 Unknown History Ezetimibe 1 tab PO DAILY 11/02/16 11/02/16 Unknown History Montelukast Sodium 1 tab PO DAILY 11/02/16 11/02/16 Unknown History Potassium Chloride 1 tab PO DAILY 11/02/16 11/02/16 Unknown History Ranitidine HCl 1 tab PO BID 11/02/16 11/02/16 Unknown History - History of Present Illness-Neuro Nature of Presenting Problem: 60 Y/O F presents to the ER with the family with stroke like symptoms. PT family states that that the PT has a Hx of Strokes and Cannot speak because of the strokes happened earlier. Onset/Duration: reports: just prior to arrival Timing: reports: still present Context: reports: facial droop Character of Deficits: reports: decreased ability to walk New weakness or altered sensation location:: reports: right facial Associated Symptoms: reports: other (facial dropping and left side weakness) Review of Systems - Adult - REVIEW OF SYSTEMS - ADULT Constitutional: denies: chills, fever Eyes: reports: no symptoms reported Ears, Nose, Mouth & Throat: reports: no symptoms reported Cardiovascular: denies: chest pain, irregular heart rate Respiratory: denies: cough, shortness of breath Gastrointestinal: reports: no symptoms reported Genitourinary: reports: no symptoms reported Musculoskeletal: denies: back pain, joint pain Integumentary: reports: no symptoms reported Neurological: reports: see HPI, seizure (HX of seizures) Psychiatric: reports: no symptoms reported Endocrine: reports: no symptoms reported Hematologic/Lymphatic: reports: no symptoms reported Allergic/Immunologic: reports: no symptoms reported All Other Systems: Reviewed and Negative Past History - Adult - PAST MEDICAL HISTORY-ADULT Review of Records: reports: Old Records Reviewed, Nursing Assessment Review Major Childhood Illnesses: reports: denies history Cardiovascular: reports: CHF, HTN, hyperlipidemia Respiratory: reports: asthma, COPD Gastrointestinal: reports: denies history Obstetrical/Gynecological: reports: denies history Genitourinary: reports: denies history Musculoskeletal: reports: denies history Neurological: reports: CVA Psychiatric: reports: anxiety Endocrine/Immune: reports: denies history Other Conditions: reports: denies history - PRIOR SURGERIES/PROCEDURES Surgical/Procedure History: reports: none, orthopedic (extremity) (2 knee replacement) - PRIOR HOSPITALIZATIONS Prior Hospitalizations: reports: none - IMMUNIZATION STATUS Childhood Immunizations: See Nurse Assessment Flu Vaccine: See Nurse Assessment - FAMILY HISTORY Family History: reviewed, not pertinent Physical Exam- Neurological - Physical Exam-Neuro Initial Vital Signs Reviewed: Yes General Appearance: negative: appears well, alert HENMT: normal ENT inspection, TMs normal Neck: non-tender, full range of motion Respiratory: no pleuratic chest pain, no respiratory distress Cardiovascular: normal peripheral pulses, regular rate, rhythm Extremity: other (left side weakness). negative: normal gait rn utilization management um Exam: normal hearing, facial droop. negative: normal speech (cannot speak becuase of earlier siezure) Motor/Sensory: other. negative: no motor deficit, no sensory deficit Neurologic: negative: no motor/sensory deficits, sensory deficit Integumentary: normal color, warm/dry Progress - PLAN OF CARE/RESULTS Progress/Plan/Lab Results: Orders Category Date Time Status Admit - [facility] Routine AdmDCTranf 11/01/16 22:16 Ordered Activity - Strict Bedrest ORDERED Care 11/01/16 22:16 Active Call Admitting on Arrival AT ADMISSION Care 11/01/16 22:17 Completed Cardiac Monitoring DIRECTED Care 11/01/16 19:07 Active Neurological Check Q4H Care 11/01/16 22:17 Active Saline Loc DIRECTED Care 11/01/16 22:16 Completed Saline Loc NOW Care 11/01/16 19:07 Completed Vital Signs Order ARRIVAL TO ROOM Care 11/01/16 22:16 Active CHEST-2 VIEWS [RAD] Stat Exams 11/01/16 19:[address] THORAX W/O CONTRAST [CT] Stat Exams 11/01/16 21:42 Completed HEAD W/O CONTRAST [CT] Stat Exams 11/01/16 19:08 Completed CBC WITH ELECTRONIC DIFF [HEME] Stat Lab 11/01/16 19:20 Completed CK PROFILE [SP CHEM] Stat Lab 11/01/16 19:20 Completed COMPREHENSIVE METABOLIC PANEL [CHEM] Stat Lab 11/01/16 19:20 Completed D-DIMER PL [COAG] Stat Lab 11/01/16 19:20 Completed MAGNESIUM [CHEM] Stat Lab 11/01/16 19:20 Completed PRO B-NATRIURETIC PEPTIDE Stat Lab 11/01/16 19:20 Completed [address]IME WITH INR PL [COAG] Stat Lab 11/01/16 19:[address] [COAG] Stat Lab 11/01/16 19:20 Completed TROPONIN T Lab 11/02/16 05:55 Completed TROPONIN T Lab 11/02/16 12:40 Completed TROPONIN T Lab 11/02/16 21:40 Completed TROPONIN T Stat Lab 11/01/16 19:20 Completed Morphine Med 11/01/16 22:16 Discontinued 2 mg IV Q2H PRN PRN Potassium Chloride 40 Meq/Swi Med 11/01/16 22:18 Discontinued 40 meq in 100 ml IV ONCE Oxygen Device Routine Oth 11/01/16 22:17 Completed Carotid Ultrasound Stat Ther 11/02/16 07:00 Completed EKG [EKG] Stat Ther 11/01/16 19:07 Draft Transfer/Admit Order [TRANSFER] Routine Transfer 11/01/16 22:19 Completed Result Diagrams: 11/04/16 06:20 11/04/16 06:20 - EKG 1 Time of EKG reading by physician:: 19:51 EKG Read and Signed by:: Bulmaro Escobedo EKG Interpretation (*Must complete 3 of following elements*): Abnormal Rate: 72 ( Sinus rhythm with 1st degree AV block with Occasiona; Premature venticular complexes) Rhythm: Sinus Rhythm with 1st degree AV block with Occasiona; Premature venticular ST Wave: non-specific ST changes (Non Specific t wave Abnormaility) Comments: Abnormal ECG - CT/MRI 1 CT Study: Head Impression: Normal CT Results: No Acute disease 2 CT Study: other (throat) Impression: Normal CT Results: negative Departure - Departure Time of Disposition Decision: :30 DIAGNOSIS: TIA (transient ischemic attack) Disposition: SNF 03 Certified Medical Emergency: Emergent Condition: Stable This chart was documented by the indicated scribe, (Alecia Murray, Hilario) and accurately reflects the services I performed and decisions made by , Bulmaro Escobedo DO, as attested by the provider's signature.
== END 2016-11-04 18:38 ==
LOC: P.ED 19:01 → P.MEDSURG 22:42 → SUATTDRO 22:42
PROVIDERS: ATTEND Internal Medicine

== ENCOUNTER 2016-12-24 01:50 | Inpatient (IN) ==
[2016-12-24] MEDS ORDERED: DUONEB (A & A) INH ONE (01:53)
[2016-12-24] MEDS ORDERED: ALBUTEROL NEB INH ONE ×2 (01:53→02:29)
[2016-12-24] MEDS ORDERED: SOLU-MEDROL IV ONE (02:22)
[2016-12-24 02:35] LABS: MANUAL DIFF NEEDED? NO
[2016-12-24 02:36] LABS: BASO% 0.7 % (0.0-0.8); EOS% 3.8 % (0.0-10.0); HEMATOCRIT 39.1 % (37.0-47.0); HEMOGLOBIN 12.1 g/dL (12.0-16.0); IMM GRAN# 0.05 X1000 (0.0-0.04); IMM GRAN% 0.5 % (0.0-0.5); LYMPH# 2.78 X1000 (1.2-3.4); LYMPH% 26.2 % (20.5-51.1); MCH 25.5 PG (27-31); MCHC 30.9 g/dL (33-37); MCV 82.5 FL (81-99); MONO# 0.78 X1000 (0.11-0.59); MONO% 7.4 % (1.7-9.3); MPV 9.9 FL (7.4-10.4); NEUT% 61.4 % (42.2-75.2); PLT 382 X1000 (130-400); RBC 4.74 XMIL (4.2-5.4)
[2016-12-24 02:48] LABS: INR 0.93; PROTIME 9.7 Seconds (9.2-11.7); PTT 28.3 Seconds (22.0-36.0)
[2016-12-24 03:03] LABS: ALBUMIN 3.7 g/dL (3.5-5.0); CALCIUM 9.1 mg/dL (8.8-10.2); MAGNESIUM 2.1 mg/dL (1.5-2.7); POTASSIUM 3.5 mmol/L (3.5-5.1); TOTAL BILIRUBIN 0.21 mg/dL (0.20-1.00); TOTAL PROTEIN 7.5 g/dL (6.3-8.3)
--- NOTE | 2016-12-24 03:24 | PROVIDER DOCUMENTATION ---
This chart was entered by Brooke Martines Scribe, acting as scribe for Giuseppe Carlson MD. HPI-Respiratory General - General Chief Complaint: Wheezing Stated Complaint: WHEEZING Time Seen by Provider: 12/24/16 01:53 Source: patient Allergies/Adverse Reactions: Patient Allergies Allergy/AdvReac Type Severity Reaction Status Date / Time No Known Allergies Allergy Verified 12/24/16 02:36 Home Medications: Home Medication List Medication Instructions Recorded Confirmed Last Taken Type Aspirin 325 mg PO DAILY 06/02/15 12/24/16 12/23/16 08:00 History Atorvastatin Calcium 1 tab PO DAILY 11/02/16 12/24/16 12/23/16 21:00 History Clonazepam 1 tab PO BID 11/02/16 12/24/16 12/23/16 21:00 History Clonidine HCl 1 tab PO TID 11/02/16 12/24/16 12/23/16 21:00 History Ezetimibe 1 tab PO DAILY 11/02/16 12/24/16 12/23/16 08:00 History Montelukast Sodium 1 tab PO DAILY 11/02/16 12/24/16 12/23/16 08:00 History Potassium Chloride 1 tab PO DAILY 11/02/16 12/24/16 12/23/16 21:00 History Ranitidine HCl 1 tab PO BID 11/02/16 12/24/16 12/23/16 21:00 History - History of Present Illness-Resp Nature of Presenting Problem: 61 year old F presents to the ED with a cc of wheezing. Pt is non-verbal but can answer questions with shaking her head yes or no. Pt has had wheezing and cough x3 days. Wheezing was noted tonight by a provider as pt was visiting her daughter who is also a pt. Severity in ED: reports: moderate Onset/Duration: reports: 3 days ago Timing: reports: getting worse Cough Quality/Degree: reports: moderate Current Respiratory Medication Therapy: Initiated see nurses note Associated Symptoms: reports: cough, wheezing Similar Symptoms Previously?: Yes Recently seen or treated by another doctor?: No Review of Systems - Adult - REVIEW OF SYSTEMS - ADULT Constitutional: denies: chills, fever Eyes: reports: no symptoms reported Ears, Nose, Mouth & Throat: reports: no symptoms reported Cardiovascular: denies: chest pain, palpitations Respiratory: reports: cough, wheezing Gastrointestinal: denies: abdominal pain, nausea, vomiting Genitourinary: reports: no symptoms reported Musculoskeletal: denies: muscle aches, muscle weakness Integumentary: reports: no symptoms reported Neurological: reports: no symptoms reported Psychiatric: reports: no symptoms reported Endocrine: reports: no symptoms reported Hematologic/Lymphatic: reports: no symptoms reported Allergic/Immunologic: reports: no symptoms reported All Other Systems: Reviewed and Negative Past History - Adult - PAST MEDICAL HISTORY-ADULT Review of Records: reports: Nursing Assessment Review, Medications Reviewed Major Childhood Illnesses: reports: denies history Cardiovascular: reports: CHF, HTN, hyperlipidemia Respiratory: reports: asthma, COPD Gastrointestinal: reports: denies history Obstetrical/Gynecological: reports: denies history Genitourinary: reports: denies history Musculoskeletal: reports: denies history Neurological: reports: CVA Psychiatric: reports: anxiety Endocrine/Immune: reports: denies history Other Conditions: reports: denies history - PRIOR SURGERIES/PROCEDURES Surgical/Procedure History: reports: none, orthopedic (extremity) (2 knee replacement) - PRIOR HOSPITALIZATIONS Prior Hospitalizations: reports: none - IMMUNIZATION STATUS Childhood Immunizations: See Nurse Assessment Flu Vaccine: See Nurse Assessment - FAMILY HISTORY Family History: reviewed, not pertinent - SOCIAL HISTORY Smoking: non-smoker Substance Use: none/never Alcohol Use Frequency: occasionally Physical Exam-General - PHYSICAL EXAM-ADULT Initial Vital Signs Reviewed: Yes - CONSTITUTIONAL General Appearance: alert, moderate distress - RESPIRATORY Respiratory: respiratory distress, wheezing - CARDIOVASCULAR Cardiovascular: normal peripheral pulses, regular rate, rhythm, no edema - GASTROINTESTINAL (ABDOMEN) Abdominal Exam: non tender, soft - SKIN Integumentary: normal color, normal turgor, warm/dry - PSYCHIATRIC Psych/Mental Status: normal mood/affect, normal thought content, normal thought process, oriented x 3 Progress - PLAN OF CARE/RESULTS Progress/Plan/Lab Results: Vital Signs - 8 hr 12/24/16 01:52 12/24/16 02:23 12/24/16 02:44 Temperature 97.9 F 97.8 F Pulse Rate 76 70 Respiratory Rate 30 H 22 Blood Pressure 151/83 O2 Sat by Pulse Oximetry 98 Laboratory Results - last 24 hr 12/24/16 12/24/16 12/24/16 02:15 02:15 02:15 WBC 10.61 RBC 4.74 Hgb 12.1 Hct 39.1 MCV 82.5 MCH 25.5 L MCHC 30.9 L RDW Std Deviation 16.1 H Plt Count 382 MPV 9.9 Immature Gran % (Auto) 0.5 Neut % (Auto) 61.4 Lymph % (Auto) 26.2 [place] % (Auto) 7.4 Eos % (Auto) 3.8 Baso % (Auto) 0.7 Immature Gran # (Auto) 0.05 H Neut # (Auto) 6.53 H Lymph # (Auto) 2.78 [place] # (Auto) 0.78 H Eos # (Auto) 0.40 Baso # (Auto) 0.07 PT INR PTT (Actin FS) D-Dimer 1.19 H Sodium 143 Potassium 3.5 Chloride 100 Carbon Dioxide 28 Anion Gap 15 BUN 29 H Creatinine 1.4 H Estimated GFR/1.73 m2 46 BUN/Creatinine Ratio 21 Glucose 101 Calculated Osmolality 291 Calcium 9.1 Magnesium 2.1 Total Bilirubin 0.21 AST 14 ALT 11 Alkaline Phosphatase 101 Creatine Kinase 198 H Troponin T Pid-B-Gzsjxmudeyi Pept Total Protein 7.5 Albumin 3.7 Globulin 3.8 Albumin/Globulin Ratio 1.0 12/24/16 12/24/16 12/24/16 02:15 02:15 02:15 WBC RBC Hgb Hct MCV MCH MCHC RDW Std Deviation Plt Count MPV Immature Gran % (Auto) Neut % (Auto) Lymph % (Auto) [place] % (Auto) Eos % (Auto) Baso % (Auto) Immature Gran # (Auto) Neut # (Auto) Lymph # (Auto) [place] # (Auto) Eos # (Auto) Baso # (Auto) PT 9.7 INR 0.93 PTT (Actin FS) 28.3 D-Dimer Sodium Potassium Chloride Carbon Dioxide Anion Gap BUN Creatinine Estimated GFR/1.73 m2 BUN/Creatinine Ratio Glucose Calculated Osmolality Calcium Magnesium Total Bilirubin AST ALT Alkaline Phosphatase Creatine Kinase Troponin T < 0.010 Ynq-M-Wvahsgmumpg Pept 388 H Total Protein Albumin Globulin Albumin/Globulin Ratio Orders Category Date Time Status Cardiac Monitoring DIRECTED Care 12/24/16 02:05 Active Saline Loc NOW Care 12/24/16 02:05 Active CHEST-PORTABLE [RAD] Stat Exams 12/24/16 02:06 Taken CBC WITH ELECTRONIC DIFF [HEME] Stat Lab 12/24/16 02:15 Completed CK PROFILE [SP CHEM] Stat Lab 12/24/16 02:15 Results COMPREHENSIVE METABOLIC PANEL [CHEM] Stat Lab 12/24/16 02:15 Results D-DIMER [CHEM] Stat Lab 12/24/16 02:15 Completed MAGNESIUM [CHEM] Stat Lab 12/24/16 02:15 Results PRO B-NATRIURETIC PEPTIDE Stat Lab 12/24/16 02:15 Completed PROTIME WITH INR [COAG] Stat Lab 12/24/16 02:15 Completed PTT [COAG] Stat Lab 12/24/16 02:15 Completed TROPONIN T Stat Lab 12/24/16 02:15 Completed Albuterol 2.5MG/Ipratrop 0.5MG [Duoneb (A & A)] Med 12/24/16 01:53 Discontinued 3 ml INH NOW ONE Albuterol [Albuterol Neb] Med 12/24/16 01:53 Discontinued 5 mg INH NOW ONE Albuterol [Albuterol Neb] Med 12/24/16 02:29 Discontinued 5 mg INH NOW ONE Methylprednisolone Sod Succ [Solu-Medrol] Med 12/24/16 02:22 Discontinued 125 mg IV NOW ONE Aerosol Treatments Routine Oth 12/24/16 01:53 Completed Aerosol Treatments Routine Oth 12/24/16 02:29 Completed Aerosol Treatments Stat Oth 12/24/16 01:53 Completed Aerosol Treatments Stat Oth 12/24/16 02:29 Completed Result Diagrams: 12/24/16 02:15 12/24/16 02:15 - EKG 1 Time of EKG reading by physician:: 02:00 EKG Read and Signed by:: Giuseppe Carlson EKG Interpretation (*Must complete 3 of following elements*): Normal Rate: 76 Rhythm: sinus rhythm with 1st degree AV block [place]: normal Departure - Departure Time of Disposition Decision: 03:24 DIAGNOSIS: Asthma attack Disposition: ADMITTED INPATIENT 09 Certified Medical Emergency: Emergent Condition: Fair Referrals and Follow-Ups: Live Dsouza MD [Primary Care Provider] - - Critical Care Note This patient required my direct & personal management of CC.: No This chart was documented by the indicated scribe, (Brooke Martines Scribe) and accurately reflects the services I performed and decisions made by me, Aldo, Giuseppe Angeles MD, as attested by the provider's signature.
[2016-12-24 04:42] LABS: CK INDEX 0.8 (0.0-2.5); CK-MB 1.54 ng/mL (0.0-5.0)
[2016-12-24] MEDS ORDERED: LEVAQUIN 500 MG in NS 100 ML IV SCH (04:43)
[2016-12-24] MEDS: LEVAQUIN 500 MG/D5W 500 MG/100 ML IVPB IV SCH (05:26)
--- NOTE | 2016-12-24 05:38 | EKG Report ---
Test Performed on : 12/24/2016 02:00:02 AM Test Reason : No Order in Nephosity Blood Pressure : / mmHG Vent. Rate : 076 BPM Atrial Rate : 076 BPM P-R Int : 210 ms QRS Dur : 100 ms QT Int : 444 ms P-R-T Axes : 055 010 024 degrees QTc Int : 499 ms Sinus rhythm. with 1st degree AV block. Otherwise normal ECG When compared with ECG of 01-NOV-2016 19:51, premature ventricular complexes. are no longer present Nonspecific T wave abnormality no longer evident in Lateral leads Unconfirmed Result
--- NOTE | 2016-12-24 06:00 | Diag Imaging Result Doc PS360 ---
EXAM: CHEST-PORTABLE HISTORY: wheezing TECHNIQUE: Portable AP COMPARISON: 11/04/2016 FINDINGS: The heart is enlarged. The central vascular prominence. No pleural effusions identified. No consolidation. IMPRESSION: Cardiomegaly with pulmonary edema Electronically signed by Gregory Beavers 12/24/2016 5:58 AM
--- NOTE | 2016-12-24 08:30 | HISTORY AND PHYSICAL ---
PRIMARY CARE PHYSICIAN: Live Dsouza MD CHIEF COMPLAINT: Shortness of breath. HISTORY OF PRESENTING ILLNESS: This is a 61-year-old female with a history of CVA with aphasia, COPD, diabetes mellitus type 2, and hypertension, who had presented to the emergency department with 3 days' history of worsening shortness of breath. The patient is basically aphasic and most of the history was obtained from her family member who stated that she has been short of breath and was having difficulty breathing. The patient answered question basically by nodding and family added other information. However, patient had denied any fevers, chills, chest pain, hemoptysis, melena, or any weight changes. PAST MEDICAL HISTORY: Includes CHF, CVA, COPD, diabetes mellitus type 2, hypertension. PAST SURGICAL HISTORY: Bilateral knee replacement, left shoulder surgery, hysterectomy. ALLERGIES: No known drug allergies. CURRENT MEDICATIONS: As listed in the MAR. SOCIAL HISTORY: Former smoker. History of social alcohol use. Denies illicit drug use. FAMILY HISTORY: No history of coronary disease. REVIEW OF SYSTEMS: Twelve point review of systems is as listed in the HPI. Other systems negative. PHYSICAL EXAMINATION: GENERAL: Cooperative, friendly female. She is resting more comfortably now. VITAL SIGNS: Temperature 97.9 degrees, pulse 76, respiration 30, blood pressure 151/83, saturating 98%. HEENT: Atraumatic, normocephalic. Extraocular movements intact. PERRLA. NECK: No masses. CHEST: Rhonchi. CARDIOVASCULAR: Regular rate and rhythm. ABDOMEN: Soft, obese, positive bowel sounds. EXTREMITIES: Trace edema. NEURO: She is awake, alert, oriented x2. : No bladder distention. SKIN: Warm. LABORATORIES AND STUDIES: WBCs 10.61, hemoglobin 12.1, hematocrit 39.1, platelets 382,000. Sodium 143, potassium 3.5, chloride 100, CO2 28, BUN is 29, creatinine 1.4, glucose is 101. ASSESSMENT: A 61-year-old female with a history of COPD, CVA with aphasia, diabetes mellitus type 2, and hypertension, had presented to the emergency department with 3 days' history of worsening shortness of breath. The patient will need hospitalization for further management assessment. 1. Acute chronic obstructive pulmonary disease exacerbation. 2. History of cerebrovascular accident with aphasia. 3. Diabetes mellitus type 2. 4. Hypertension. PLAN: 1. We will admit patient to medical floor with telemetry. 2. We will continue with DuoNebs, IV Solu-Medrol, and IV antibiotics. 3. We will use BiPAP if this does not improve. 4. We will monitor patient on a sliding scale insulin regimen. 5. Monitor blood pressure. Resume antihypertensive agent. 6. We will resume her home medication. 7. Put patient on DVT prophylaxis with SCD. 8. We will continue to follow and reassess. cc: Robin Ponce MD
[2016-12-24] MEDS: LIPITOR PO SCH (08:46)
[2016-12-24] MEDS: ZETIA PO SCH (08:46)
[2016-12-24] MEDS: SINGULAIR PO SCH (08:46)
[2016-12-24] MEDS: CATAPRES PO SCH ×3 (08:46→17:13)
[2016-12-24] MEDS: ZANTAC PO SCH ×2 (08:46→22:10)
[2016-12-24] MEDS: ASPIRIN PO SCH (08:46)
[2016-12-24] MEDS: KLONOPIN PO SCH ×2 (09:12→22:10)
[2016-12-24] MEDS: DUONEB (A & A) INH SCH ×5 (09:26→22:44)
[2016-12-24] MEDS: SOLU-MEDROL IV SCH ×2 (09:44→17:13)
[2016-12-24] MEDS: NORCO-5 PO PRN ×2 (12:08→22:12)
[2016-12-24] MEDS: LASIX IV SCH (12:29)
--- NOTE | 2016-12-24 12:33 | PROGRESS NOTE ---
DATE: 12/24/2016 SUBJECTIVE: The patient is not able to speak but able to write. I am not sure if whether it is from the recent stroke or is something congenital. She complains of having left-sided pain. Came into the hospital because of severe shortness of breath. She could not catch her breath at home. Denies having any fever or chills. Denies having any cough. The patient has history of COPD. She denies history of asthma. OBJECTIVE: Vital Signs: Blood pressure 115/66, pulse of 83, respirations 20, temperature of 97.9 degrees, saturation of 99% on 2 L of nasal cannula. General Appearance: Well-developed, well- nourished, black female in moderate distress due to left side pain. HEENT: Anicteric sclerae. Clear conjunctivae. Neck: Supple. No JVD. No bruit. Cardiovascular: S1 and S2. Normal rate and rhythm. No murmur, rubs, or gallops. Pulmonary: Wheezes bilaterally and crackles. GI: Soft, nontender, nondistended. Normoactive bowel sounds. Musculoskeletal: No clubbing, cyanosis, or edema. Data: A chest x-ray showed cardiomegaly and pulmonary edema. Laboratories showed white count of 10.61, hemoglobin 12.1, hematocrit of 39.1, platelets of 382,000. Chemistry: Sodium 143, potassium 3.5, chloride 100, bicarb 28, BUN 29, creatinine 1.4. ProBNP 388. ASSESSMENT/PLAN: This is a 61-year-old, black female admitted to the hospital for shortness of breath and left-sided pain from head to toes on the left side. 1. Shortness of breath. Chest x-ray showed pulmonary edema, concerning for congestive heart failure. I did not see any echocardiogram on board. We will order an echocardiogram. We will start the patient on intravenous Lasix. At the same time, we will keep her on Levaquin, steroid, and Singulair for chronic obstructive pulmonary disease exacerbation. 2. History of previous stroke. She stated that she had 5 strokes in October of this year. We will put the patient on telemetry to monitor her for any evidence of atrial fibrillation. She may need to be on a full dose of anticoagulations but at this point, we will monitor. 3. Hypertension. We will continue Catapres. Again, we added Lasix as mentioned above. 4. Pain. We will start the patient on Paden 5 every 4 hours as needed for pain. 5. Deep vein thrombosis prophylaxis. Put the patient on Lovenox. 6. Code status. The patient is a full code. 7. We will get physical therapy to see the patient as well.
--- NOTE | 2016-12-24 19:47 | ECHO REPORT ---
ORDER DATE: 12/24/2016 INTERPRETING PHYSICIAN: Dr. Reed REQUESTING PHYSICIAN: CLINICAL INDICATIONS: A 61-year-old female with pulmonary edema, morbidly obese, hypertension, diabetes. M-MODE MEASUREMENTS: Right ventricle: 3.2 cm. Left ventricle end diastole: 4.9 cm. Left ventricle end systole: 4.0 cm. Posterior wall: 1.2 cm. Interventricular septum: 1.2 cm. Left atrium: Not measured. Aortic root: cm. SUMMARY OF 2-DIMENSIONAL IMAGING: The study is technically difficult. The patient has poor acoustic windows. The global left ventricular systolic function appears to be mildly decreased, estimated to be somewhere in the range of 50-55%. I believe there is focal wall motion abnormality involving the basal inferior wall, basal interventricular septum, and basal inferolateral wall. That may raise concern for ischemic heart disease. The apical portions of the left ventricle showed normal contractility. The right ventricle appears to be normal. The tricuspid valve looks normal. Color flow mapping indicates a mild degree of regurgitation. The inferior vena cava is at the upper limits of normal. Pulmonary pressure is normal. The pulmonic valve looks normal. Color flow mapping unremarkable. The pulmonary venous flow shows normal pattern. The mitral annulus shows some calcification. Leaflets of the mitral valve open normally. Color flow mapping unremarkable. Pulse wave Doppler of mitral inflow shows mild reversal of the E and the A wave. Tissue Doppler of septal and lateral mitral annulus appears to be decreased, averaging about 5 cm. That would suggest impaired left ventricular relaxation. The aortic valve shows thickening and calcification of the cusps with a gradient of 28 mmHg across the aortic valve, mean gradient is 15 mmHg, suggesting mild degree of aortic stenosis. Valve area estimated roughly at 1.6 cm squared. No aortic regurgitation noted. No pericardial effusion, masses or thrombus. IMPRESSION: In summary, this study is technically difficult due to patient's poor acoustic windows, obesity. 1. The left ventricular function appears to be mildly decreased, estimated at 50-55% with suspected wall motion abnormality at the level of the basal inferior, basal inferolateral segments. 2. Aortic stenosis of very mild degree. Mean gradient is 15 mmHg. 3. Impaired left ventricular relaxation. 4. Pulmonary pressure appears to be normal. Clinical correlation recommended. cc: Tobias Reed MD
[2016-12-25] MEDS: NORCO-5 PO PRN ×2 (03:27→20:09)
[2016-12-25] MEDS: SOLU-MEDROL IV SCH ×3 (03:27→17:41)
[2016-12-25] MEDS: DUONEB (A & A) INH SCH ×6 (04:31→22:48)
[2016-12-25] MEDS: LEVAQUIN 500 MG/D5W 500 MG/100 ML IVPB IV SCH (05:09)
[2016-12-25 06:39] LABS: BASO% 0.1 % (0.0-0.8); HEMATOCRIT 38.5 % (37.0-47.0); HEMOGLOBIN 12.2 g/dL (12.0-16.0); IMM GRAN# 0.11 X1000 (0.0-0.04); IMM GRAN% 0.6 % (0.0-0.5); LYMPH# 1.55 X1000 (1.2-3.4); LYMPH% 8.5 % (20.5-51.1); MANUAL DIFF NEEDED? YES; MCH 25.8 PG (27-31); MCHC 31.7 g/dL (33-37); MCV 81.6 FL (81-99); MONO% 3.3 % (1.7-9.3); MPV 9.7 FL (7.4-10.4); NEUT% 87.5 % (42.2-75.2); PLT 370 X1000 (130-400); RBC 4.72 XMIL (4.2-5.4)
[2016-12-25 06:56] LABS: LYMPHS 7 % (21-51); MONO 2 % (1-9)
[2016-12-25 07:04] LABS: CALCIUM 9.1 mg/dL (8.8-10.2); POTASSIUM 3.6 mmol/L (3.5-5.1)
[2016-12-25] MEDS: SINGULAIR PO SCH (09:01)
[2016-12-25] MEDS: CATAPRES PO SCH ×3 (09:01→17:42)
[2016-12-25] MEDS: ASPIRIN PO SCH (09:01)
[2016-12-25] MEDS: KLONOPIN PO SCH ×2 (09:01→20:09)
[2016-12-25] MEDS: ZETIA PO SCH (09:02)
[2016-12-25] MEDS: LASIX IV SCH (09:02)
[2016-12-25] MEDS: LOVENOX SUBQ SCH (09:02)
[2016-12-25] MEDS: ZANTAC PO SCH ×2 (09:02→20:09)
[2016-12-25] MEDS: LIPITOR PO SCH (09:02)
--- NOTE | 2016-12-25 12:15 | PROGRESS NOTE ---
DATE: 12/25/2016 SUBJECTIVE: The patient feels much better today. Her breathing is much improved on her left side, pain has resolved. OBJECTIVE: Vital signs: Blood pressure 144/60, pulse of 70, respirations 20, temperature 97.6 degrees, saturation 98% on 2 L nasal cannula. General appearance: Well-developed, well- nourished, black female in no acute distress. HEENT: Anicteric. Clear conjunctivae. Neck: Supple. No JVD. No bruit. Cardiovascular: S1, S2. Normal rate and rhythm. No murmur, rubs, or gallops. Pulmonary: Clear to auscultation bilaterally. GI: Soft, nontender, nondistended. Normoactive bowel sounds. Musculoskeletal: No clubbing, cyanosis, or edema. LABORATORY: Her white count today is 18.22, hemoglobin 12.2, hematocrit of 38.5, platelets of 370,000. Chemistry sodium 139, potassium 3.6, chloride 99, bicarb 24, BUN 37, creatinine 1.3, glucose of 170. Echocardiogram showed an EF of 50-55% with diastolic heart dysfunction. ASSESSMENT AND PLAN: This is a 62-year-old black female admitted to the hospital for acute shortness of breath. 1. Acute shortness of breath consistent with acute diastolic heart failure. We will continue Lasix. 2. The patient also has acute chronic obstructive pulmonary disease exacerbation. Continue steroid, Levaquin and Singulair for now. Cultures still pending. 3. Previous stroke. Continue to monitor the patient for now. No history of atrial fibrillation or had a fever overnight. 4. Hypertension. We will continue Catapres and Lasix. 5. Pain resolved p.r.n. Maxwell. 6. Deep vein thrombosis prophylaxis. The patient on Lovenox. CODE STATUS: The patient is a full code.
[2016-12-26] MEDS: SOLU-MEDROL IV SCH ×3 (03:12→10:39)
[2016-12-26] MEDS: DUONEB (A & A) INH SCH ×2 (03:56→07:55)
[2016-12-26] MEDS: LEVAQUIN 500 MG/D5W 500 MG/100 ML IVPB IV SCH (04:59)
[2016-12-26] MEDS: NORCO-5 PO PRN ×2 (07:49→11:23)
[2016-12-26 08:27] VITALS: BP 140/72
[2016-12-26] MEDS: LIPITOR PO SCH (08:42)
[2016-12-26] MEDS: SINGULAIR PO SCH (08:42)
[2016-12-26] MEDS: ZANTAC PO SCH (08:42)
[2016-12-26] MEDS: KLONOPIN PO SCH (08:42)
[2016-12-26] MEDS: ZETIA PO SCH (08:42)
[2016-12-26] MEDS: CATAPRES PO SCH (08:42)
[2016-12-26] MEDS: ASPIRIN PO SCH (08:42)
[2016-12-26] MEDS: LOVENOX SUBQ SCH (08:43)
[2016-12-26] MEDS: LASIX IV SCH (08:43)
--- NOTE | 2016-12-26 10:20 | PROGRESS NOTE ---
DATE: 12/26/2016 SUBJECTIVE: The patient is feeling well. She has no wheezing, no fever and no chills. No nausea, vomiting, or diarrhea. OBJECTIVE: Vital Signs: Blood pressure 140/72, pulse 74, respirations 18, temperature 97.8 degrees, saturation 99% on 2 liters of nasal cannula. General Appearance: A well-developed, well- nourished black female, in no acute distress. HEENT: Anicteric. Clear conjunctivae. Neck: Supple. No JVD. No bruit. Cardiovascular: S1 and S2. Normal rate and rhythm. No murmur, rubs, or gallops. Pulmonary: Clear to auscultation bilaterally. Gastrointestinal: Soft, nontender, nondistended. Normoactive bowel sounds. Musculoskeletal: No clubbing, cyanosis, or edema. ASSESSMENT AND PLAN: This is a 61-year-old admitted to the hospital for chronic obstructive pulmonary disease exacerbation. Chronic obstructive pulmonary disease exacerbation: The patient is improving significantly. We will change her steroids to oral, and we will plan to discharge the patient home with tapering steroids for the next several days, and we will also resume her home medications.
--- NOTE | 2016-12-26 16:03 | DISCHARGE SUMMARY ---
ADMISSION DATE: 12/24/2016 DISCHARGE DATE: 12/26/2016 CONSULTATIONS: None. PERTINENT PROCEDURES: Echocardiogram showed an EF of 50-55% with suspected wall motion abnormality at the level of the inferior basal and inferior lateral segments. Aortic stenosis of a very mild degree. DISCHARGE DIAGNOSES: 1. Chronic obstructive pulmonary disease exacerbation. Improved. 2. Acute on chronic diastolic heart failure. Improved with Lasix. 3. Previous stroke. Aware. 4. Hypertension. Continue Catapres and Lasix. 5. Diabetes mellitus type 2. Continue home medications. HOSPITAL COURSE: Ms. Scott is a 61-year-old female with a history of CVA with aphasia, COPD, diabetes mellitus type 2 and hypertension who presented to the ED today with 3 days of worsening shortness of breath. The patient's is basically aphasic. Most of the history obtained from the family member who stated she had been short of breath and was having difficulty breathing. The patient can answer questions by nodding. The family added other information. She was admitted for acute COPD exacerbation to the telemetry floor. She was started on DuoNeb and IV steroids, IV antibiotics and aggressive pulmonary toilet. The patient's chest x -ray did show some pulmonary edema concerning for congestive heart failure. She did have an echocardiogram which showed an EF of 50-55%. She was started on IV Lasix. The patient's steroids were weaned. She also had some leukocytosis secondary to IV steroids. The patient was afebrile throughout her admission. Her steroids have been weaned down. She is appropriate for discharge home today. Again, the patient is feeling better. There is no shortness of breath. No wheezing. No fever. No chills. Vital signs at time of her discharge, temperature is 97.9 degrees, heart rate 83 , respirations 20, blood pressure 115/60, O2 99%. DISCHARGE DIET: Healthy heart. DISCHARGE MEDICATIONS: 1. Aspirin 325 mg p.o. daily. 2. Atorvastatin 80 mg p.o. daily. 3. Clonazepam 1 tab p.o. b.i.d. 4. Clonidine 1 tablet p.o. t.i.d. 0.3 mg. 5. Singulair 10 mg p.o. daily. 6. Potassium 8 mEq tablet ER daily. 7. Prednisone taper. 8. Zantac 150 mg p.o. b.i.d. 9. Ezetimibe 10 mg p.o. daily. DISPOSITION: The patient is being discharged home with family. FOLLOWUP: She will follow up with her primary care physician, Dr. Live Dsouza in 1 week. Patient current can return to the ED for any worsening of symptoms. DISCHARGE TIME: Thirty minutes. Dictated by ESAU Caal for Dillan Bunn MD Addendum: I personally evaluated and examined the patient in conjunction to the DIRECTOR HAIR and agreed with her plans and disposition. VERÓNICA
== END 2016-12-26 10:59 | disposition home or self-care (01) ==
LOC: ED 01:50 → 3N 04:02 → SUATTDRO 04:02
PROVIDERS: ATTEND Internal Medicine